=== PATIENT | male | born 1960 | race Caucasian/White ===

== ENCOUNTER → 2017-06-17 | Outpatient (CLI) | payer OTHER ==
--- NOTE | 2017-06-17 12:14 | REP ---
LEFT KNEE, FIVE VIEWS: HISTORY: Pain. There is no acute fracture or dislocation. There is narrowing of the joint spaces with associated osteophyte formation. Chondrocalcinosis is present. A suprapatellar joint effusion is present. IMPRESSION: Degenerative change as described above. Signed by Alfred Majano MD 06/17/2017 12:18 P
== END ==
LOC: M WUC 09:12
PROVIDERS: ATTEND Physician Assistant
DX: M25.562 Pain in left knee (principal)

== ENCOUNTER 2019-03-15 11:57 | Day surgery (SDC) | payer OTHER ==
[~2019-03-15] VITALS: Ht 188 cm; Wt 108.1 kg
[~2019-03-15 11:57] MED LIST: HM I200C PO; LISI-542 PO; LOVA40TA PO; NS 1,000 ML IV ONE
[2019-03-15] MEDS ORDERED: propofoL 200 MG/20 ML VIAL As Ordered ONE (15:13)
[2019-03-15] MEDS ORDERED: LIDOCAINE 2% INJ 100 MG/5 ML SDV (FOR ANES.) As Ordered ONE (15:13)
--- NOTE | 2019-03-15 15:43 | ROOR ---
Patient Name: Avelino Coleman Procedure Date: 03/15/2019 2:58 PM Date of : 1960 Age: 59 Room: [facility] Gender: Male Note Status: Finalized Procedure: Total Colonoscopy to Cecum + Cold Snare Polypectomy + Hemoclips Indications: Colon cancer screening in patient at increased risk: Colorectal cancer in mother Providers: Oral Montelongo MD Referring MD: Iggy Alonzo MD Requesting Provider: Medicines: Monitored Anesthesia Care Complications: No immediate complications. Procedure: Pre-Anesthesia Assessment: - The heart rate, respiratory rate, oxygen saturations, blood pressure, adequacy of pulmonary ventilation, and response to care were monitored throughout the procedure. The Colonoscope was introduced through the anus and advanced to the cecum, identified by appendiceal orifice and ileocecal valve. The colonoscopy was performed without difficulty. The patient tolerated the procedure well. The quality of the bowel preparation was excellent. Findings: The perianal and digital rectal examinations were normal. Non-bleeding internal hemorrhoids were found during retroflexion. The hemorrhoids were small and Grade I (internal hemorrhoids that do not prolapse). A medium polyp was found in the rectum. The polyp was sessile. The polyp was removed with a cold snare. Resection and retrieval were complete. To prevent bleeding after the polypectomy, two hemostatic clips were successfully placed (MR conditional). There was no bleeding at the end of the procedure. A medium polyp was found in the distal ascending colon. The polyp was sessile. The polyp was removed with a cold snare. Resection and retrieval were complete. To prevent bleeding after the polypectomy, two hemostatic clips were successfully placed (MR conditional). There was no bleeding at the end of the procedure. A large polyp was found in the mid ascending colon. The polyp was sessile. The polyp was removed with a cold snare. Resection and retrieval were complete. To prevent bleeding after the polypectomy, three hemostatic clips were successfully placed (MR conditional). There was no bleeding at the end of the procedure. A large polyp was found in the ileocecal valve. The polyp was sessile. The polyp was removed with a cold snare. Resection and retrieval were complete. To prevent bleeding after the polypectomy, two hemostatic clips were successfully placed (MR conditional). There was no bleeding at the end of the procedure. No other significant abnormalities were identified in a careful examination of the remainder of the colon. The exam was otherwise without abnormality on direct and retroflexion views. Impression: - Non-bleeding internal hemorrhoids. - One medium polyp in the rectum, removed with a cold snare. Resected and retrieved. Clips (MR conditional) were placed. - One medium polyp in the distal ascending colon, removed with a cold snare. Resected and retrieved. Clips (MR conditional) were placed. - One large polyp in the mid ascending colon, removed with a cold snare. Resected and retrieved. Clips (MR conditional) were placed. - One large polyp at the ileocecal valve, removed with a cold snare. Resected and retrieved. Clips (MR conditional) were placed. - The examination was otherwise normal on direct and retroflexion views. - The exam was otherwise normal to the cecum. Recommendation: - Patient has a contact number available for emergencies. The signs and symptoms of potential delayed complications were discussed with the patient. Return to normal activities tomorrow. Written discharge instructions were provided to the patient. - High fiber diet. - Discharge patient to home. - Continue present medications. - Await pathology results. - Telephone GI clinic for pathology results in 1 week. - Repeat colonoscopy for surveillance based on pathology results. - Return to referring physician. - Check Portal Online for Path Results.([email or web address]) - The findings and recommendations were discussed with the patient's family. Oral Montelongo MD Oral Montelongo MD 03/15/2019 3:43:42 PM Electronically signed by Oral Montelongo MD Number of Addenda: 0 Note Initiated On: 03/15/2019 2:58 PM Estimated Blood Loss: Estimated blood loss: none.
[2019-03-15 16:03] VITALS: BP 138/83
== END 2019-03-15 16:06 | disposition home or self-care (01) ==
LOC: M OPP 11:57
PROVIDERS: ATTEND Internal Medicine Gastroenterology
DX: K64.0 First degree hemorrhoids (principal); K62.1 Rectal polyp; D12.2 Benign neoplasm of ascending colon; D12.0 Benign neoplasm of cecum; Z12.11 Encounter for screening for malignant neoplasm of colon; Z80.0 Family history of malignant neoplasm of digestive organs; Z79.899 Other long term (current) drug therapy

== ENCOUNTER → 2021-07-23 | Outpatient (REF) | payer OTHER ==
[~2021-07-23] MED LIST changes: -HM I200C PO; +IBUP200C34 PO; -LISI-542 PO; +LISI-898 PO; -NS 1,000 ML IV ONE
== END ==
LOC: M WUC 12:51
PROVIDERS: ATTEND Physician Assistant
DX: R05.9 Cough, unspecified (principal)

== ENCOUNTER 2022-12-23 09:19 | Day surgery (SDC) | payer OTHER ==
[~2022-12-23] VITALS: Ht 188 cm; Wt 109.3 kg
[~2022-12-23 09:19] MED LIST changes: -LISI-898 PO; +LISI5TAB11 PO; +LORA-674 PO; +VITMTA PO
[2022-12-23] MEDS ORDERED: propofoL 500 MG/50 ML VIAL As Ordered ONE (10:41)
[2022-12-23] MEDS ORDERED: LIDOCAINE 2% 100MG/5ML SDV (FOR ANES.) As Ordered ONE (10:41)
[2022-12-23 11:15] VITALS: BP 129/67
== END 2022-12-23 11:16 | disposition home or self-care (01) ==
LOC: M OPP 09:19
PROVIDERS: ATTEND Internal Medicine Gastroenterology
DX: Z12.11 Encounter for screening for malignant neoplasm of colon (principal); Z86.010 Personal history of colon polyps; Z80.0 Family history of malignant neoplasm of digestive organs; K64.0 First degree hemorrhoids; K57.30 Diverticulosis of large intestine without perforation or abscess without bleeding; Z79.02 Long term (current) use of antithrombotics/antiplatelets; Z79.1 Long term (current) use of non-steroidal anti-inflammatories (NSAID); Z79.899 Other long term (current) drug therapy

== ENCOUNTER 2025-05-18 12:33 | Emergency (ER) | payer MEDICARE, OTHER ==
[~2025-05-18] VITALS: Ht 188 cm; Wt 114.2 kg
[~2025-05-18 12:33] MED LIST changes: +LORA-1041 PO; -LORA-674 PO
[2025-05-18 13:32] LABS: BASO # 0.0 10^3/uL (0.0-0.2); BASO % 0.3 % (0.0-1.0); EOS # 0.0 10^3/uL (0.0-0.5); EOS % 0.6 % (0.0-3.0); LYMPH # 2.1 10^3/uL (1.5-5.0); LYMPH % 29.9 % (24.0-44.0); MONO # 0.3 10^3/uL (0.0-0.8); MONO % 4.5 % (2.0-8.0); NEUTROPHILS # 4.6 10^3/uL (1.5-8.5); NEUTROPHILS % 64.3 % (36.0-66.0); PLATELET COUNT, AUTOMATED 213 10^3/uL (150-450)
[2025-05-18 13:54] LABS: CALCIUM LEVEL 10.0 MG/DL (8.3-10.6); CARBON DIOXIDE LEVEL 27.0 MMOL/L (20-31); CHLORIDE LEVEL 103.0 MMOL/L (98-107); CREATININE FOR GFR 1.18 MG/DL (0.70-1.30); GLOMERULAR FILTRATION RATE 68.5 (>49); POTASSIUM SERUM 3.7 MMOL/L (3.5-5.1); SODIUM LEVEL 140.0 MMOL/L (136-145)
[2025-05-18] MEDS ORDERED: ISOVUE-370 76% 100 ML VIAL As Ordered ONE (16:25)
[2025-05-18 17:07] LABS: KETONE, URINE AUTO RFX NEGATIVE (NEGATIVE); LEUKOCYTE ESTERASE UR AUTO RFX NEGATIVE (NEGATIVE); NITRITE, URINE AUTO RFX NEGATIVE (NEGATIVE); RBC, URINE AUTO RFX 0 /HPF (0-3); SQUAM EPITHELIAL CELL UR AURFX 0 /HPF (0-6); WBC, URINE AUTO RFX 0 /HPF (0-3)
[2025-05-18 18:24] VITALS: TEMP 97.8
[2025-05-18] MEDS ORDERED: CARV6.25 PO (18:30)
[2025-05-18] MEDS ORDERED: NIFE1TAB52 PO (18:30)
[2025-05-18] MEDS ORDERED: METO1TAB7 PO (18:35)
[2025-05-18] MEDS ORDERED: HYDR12.55 PO (18:35)
[2025-05-18] MEDS ORDERED: LOVA40TA PO (18:36)
[2025-05-18] MEDS ORDERED: ACET250T18 PO (18:38)
[2025-05-18 20:00] VITALS: BP 168/95
[2025-05-18] MEDS: acetaZOLAMIDE 250 MG TAB PO STA (20:01)
[2025-05-18 20:04] VITALS: BP 168/95
[2025-05-18 20:08] VITALS: O2SAT 94
== END 2025-05-18 20:20 | disposition home or self-care (01) ==
LOC: M ED 12:33
DX: H47.11 Papilledema associated with increased intracranial pressure (principal); I10 Essential (primary) hypertension; R93.2 Abnormal findings on diagnostic imaging of liver and biliary tract; R93.3 Abnormal findings on diagnostic imaging of other parts of digestive tract; R93.421 Abnormal radiologic findings on diagnostic imaging of right kidney; N40.0 Benign prostatic hyperplasia without lower urinary tract symptoms; E78.5 Hyperlipidemia, unspecified; Z79.899 Other long term (current) drug therapy
CPT/HCPCS: 70551; 71046; 74174; 76000; 80048; 81001; 85025; 88108; 88300; 88313; 93005; 93041; 99285; Q9967

== ENCOUNTER → 2025-06-03 | Outpatient (CLI) | payer MEDICARE ==
[~2025-06-03] MED LIST changes: +ACET250T18 PO; +CARV6.25 PO; +HYDR12.55 PO; +METO1TAB7 PO; +NIFE1TAB52 PO
== END ==
LOC: M PLALAB 09:39 → M LAB 09:39
PROVIDERS: ATTEND Family Medicine
DX: D37.8 Neoplasm of uncertain behavior of other specified digestive organs (principal)

== ENCOUNTER → 2025-06-16 | Outpatient (REF) | payer MEDICARE ==
[2025-06-20 17:59] LABS: CALCULATED TOTAL E AND NE 27 mcg/24 h (26-121); DOPAMINE 140 mcg/24 h (52-480); NOREPINEPHRINE 27 mcg/24 h (15-100)
== END ==
LOC: M LAB REF 11:06
PROVIDERS: ATTEND Family Medicine
DX: D37.8 Neoplasm of uncertain behavior of other specified digestive organs (principal)

== ENCOUNTER → 2025-06-30 | Outpatient (CLI) | payer MEDICARE ==
[~2025-06-30] MED LIST changes: +PROHANCE 279.3MG/ML 15ML VIAL ONE; +PROHANCE 279.3MG/ML 5ML VIAL ONE
== END ==
LOC: M PLAIMG 13:03
PROVIDERS: ATTEND Family Medicine
DX: D37.8 Neoplasm of uncertain behavior of other specified digestive organs (principal); N28.1 Cyst of kidney, acquired
CPT/HCPCS: 74183; A9576